=== PATIENT | female | born 2000 | race African-American/Black ===

== ENCOUNTER 2019-01-05 01:51 | Emergency (ER) | payer OTHER ==
--- NOTE | 2019-01-05 02:11 | ED ---
Laceration/Wound HPI - HPI Summary HPI Summary: Patient is a 18 y/o F presenting to [facility] with complaints of right middle finger laceration which she sustained while opening a soup can. Patient had washed the laceration with water and soap. Incident occurred 00101/05/19. Last tetanus shot was within the past three years. No PMHx, no PSHx, no allergies, no tobacco usage, no alcohol usage, no substance usage reported. On triage, pain is rated 6/10, nothing is noted to aggravate/alleviate Sx. Home medications and allergies are reviewed. - History of Current Complaint Stated Complaint: FINGER LAC PER PT Time Seen by Provider: 01/05/19 02:04 Hx Obtained From: Patient Mechanism of Injury: Sharp/Blunt Trauma Onset/Duration: Still Present Current Severity: Moderate Pain Intensity: 6 Pain Scale Used: 0-10 Numeric Associated Signs & Symptoms: Negative - Allergy/Home Medications Allergies/Adverse Reactions: Allergies Allergy/AdvReac Type Severity Reaction Status Date / Time No Known Allergies Allergy Verified 01/05/19 01:53 EST Home Medications: Home Medications NK [No Home Medications Reported] 01/05/19 [History Confirmed 01/05/19] PMH/Surg Hx/FS Hx/Imm Hx Endocrine/Hematology History: Denies: Hx Diabetes Cardiovascular History: Denies: Hx Hypertension Infectious Disease History: No Infectious Disease History: Denies: Traveled Outside the [place] in Last 30 Days - Family History Known Family History: Negative: Diabetes - Social History Alcohol Use: None Substance Use Type: Reports: None Smoking Status (MU): Never Smoked Tobacco Review of Systems Negative: Fever - on vitals, temp is 98 F Skin: Other - positive - right middle finger laceration All Other Systems Reviewed And Are Negative: Yes Physical Exam - Summary Physical Exam Summary: Constitutional: Well-developed, Well-nourished, Alert. (-) Distressed Skin: There is a 1 cm laceration of the right middle finger at the palmar surface distal to the PIP joint. No active bleeding. Warm, Dry HENT: Normocephalic; Atraumatic Eyes: Conjunctiva normal Neck: Musculoskeletal ROM normal neck. (-) JVD, (-) Stridor, (-) Tracheal deviation Cardio: Rhythm regular, rate normal, Heart sounds normal; Intact distal pulses; Radial pulses are 2+ and symmetric. (-) Murmur Pulmonary/Chest wall: Effort normal. (-) Respiratory distress, (-) Wheezes, (-) Rales Abd: Soft, (-) tenderness, (-) Distension, (-) Guarding, (-) Rebound Musculoskeletal: (+) FROM (-) Edema Lymph: (-) Cervical adenopathy Neuro: Alert, Oriented x3 Psych: Mood and affect Normal Triage Information Reviewed: Yes Vital Signs On Initial Exam: Initial Vitals Temp Pulse Resp BP Pulse Ox 98.0 F 70 18 130/90 98 01/05/19 01:53 EST 01/05/19 01:53 EST 01/05/19 01:53 EST 01/05/19 01:53 EST 01/05/19 01:53 EST Vital Signs Reviewed: Yes Procedures - Sedation Patient Received Moderate/Deep Sedation with Procedure: No Diagnostics - Vital Signs Vital Signs Temp Pulse Resp BP Pulse Ox 01/05/19 01:53 EST 98.0 F 70 18 130/90 98 - Laboratory Lab Statement: Any lab studies that have been ordered have been reviewed, and results considered in the medical decision making process. Re-Evaluation - Re-Evaluation First Eval Re-Evaluation Time: 02:14 Change: Improved Comment: Laceration was repaired with dermabond and steri-strips. Laceration Repair Course/Dx - Course Course Of Treatment: Patient is here with a small laceration secondary to a soup can. Patient is up-to-date on her vaccines. Patient had successful repair of her laceration with Dermabond and Steri-Strips. - Clinical Impression Provider Diagnoses: Laceration of right middle finger Discharge ED - Sign-Out/Discharge Documenting (check all that apply): Patient Departure - discharge - Discharge Plan Condition: Stable Disposition: HOME Patient Education Materials: Finger Laceration (ED) Referrals: Care [facility] [Outside] Additional Instructions: Please return to ED for any fever, redness of your finger, pus from your finger , or any other new or concerning symptoms. Do not put Vaseline or bacitracin on your finger. You can gently wash your finger in the shower. - Billing Disposition and Condition Condition: STABLE Disposition: Home - Attestation Statements Document Initiated by Scribe: Yes Documenting Scribe: VTIA CASTRO Provider For Whom Scribe is Documenting (Include Credential): AKBAR CORTEZ MD Scribe Attestation: I, VITA CASTRO, scribed for AKBAR CORTEZ MD on 01/05/19 at 0604. Scribe Documentation Reviewed: Yes Provider Attestation: The documentation as recorded by the VITA duarte accurately reflects the service I personally performed and the decisions made by me, AKBAR CORTEZ MD Status of Scribe Document: Viewed
[2019-01-05 02:24] VITALS: BP 0/0
== END 2019-01-05 02:17 | disposition home or self-care (01) ==
LOC: ED 01:51
DX: S61.212A Laceration without foreign body of right middle finger without damage to nail, initial encounter (principal); W26.8XXA Contact with other sharp object(s), not elsewhere classified, initial encounter; Y92.9 Unspecified place or not applicable
CPT/HCPCS: 99282